=== PATIENT | male | born 1965 | race Hispanic/Latino ===

== ENCOUNTER 2021-01-24 09:29 | Emergency (ER) | payer SELFPAY ==
[2021-01-24] MEDS ORDERED: Boostrix 0.5 ML (Tdap) VIAL ONE (10:54)
[2021-01-24] MEDS ORDERED: traMADol HCl 50 MG TAB ONE (10:54)
[2021-01-24] MEDS ORDERED: Rabies Vaccine Human 2.5 UNITS VIAL IM ONE (11:15)
[2021-01-24] MEDS ORDERED: Ondansetron ODT 4 MG TAB ONE (11:49)
== END 2021-01-24 12:32 | disposition home or self-care (01) ==
LOC: ERS 09:29 → EDBD 09:29 → ERS 12:32
DX: S91.151A Open bite of right great toe without damage to nail, initial encounter (principal); Z23 Encounter for immunization; W53.01XA Bitten by mouse, initial encounter
CPT/HCPCS: 90376; 90471; 90472; 90675; 90715; 96372; Q0162

== ENCOUNTER 2021-01-31 08:08 | Emergency (ER) | payer SELFPAY ==
[2021-01-31] MEDS ORDERED: Rabies Vaccine Human 2.5 UNITS VIAL IM ONE (11:00)
== END 2021-01-31 12:07 | disposition home or self-care (01) ==
LOC: ERS 08:08
DX: Z23 Encounter for immunization (principal)
CPT/HCPCS: 90471; 90675